=== PATIENT | female | born 1980 | race Caucasian/White ===

== ENCOUNTER → 2022-05-29 17:08 | Outpatient (CLI) | payer OTHER, SELFPAY ==
--- NOTE | 2022-05-29 17:20 | DI.US.S_ITS ---
PROCEDURE: US OB <= 14 WEEKS FETUS INDICATIONS: DATING AND VIABILITY OUTSIDE/PRIOR DATING DATA: Last menstrual period (LMP): 04/04/2022. LMP-based estimated date of delivery (AMBER): 01/09/2023. TECHNIQUE: Real-time scanning was performed of the fetus and maternal pelvic organs, with image documentation. Endovaginal scanning was also performed to better visualize the fetus and maternal ovaries. COMPARISON: None. FINDINGS: Embryo: A possible intrauterine gestational sac is seen, however there is no yolk sac or pole. The gestational sac measures 2.2 cm compatible with a 7 week 1 day . Maternal organs: Maternal ovaries are not seen.. IMPRESSION: 1.8 x 1.8 x 2.9 centimeter probable gestational sac. Gestational sac size suggests a gestational age of 7 weeks 1 day. Yolk sac and embryo are not visualized however. Findings are suggestive of early failure. We strive to produce accurate, complete, and clear reports of imaging services. To assist us in improving patient care, this report was composed using standard report templates and voice recognition software. Therefore, it may contain abnormal punctuation, insertions and/or omissions. Occasional wrong-word or sound-alike substitutions may occur. Though we review the report and make efforts to correct it, we do recommend that the report be read carefully in proper context to recognize any text inaccuracies. Dictated by: Orlando Núñez M.D. on 05/30/2022 at 13:52 Approved by: Orlando Núñez M.D. on 05/30/2022 at 13:56
== END ==
PROVIDERS: PCP Family Medicine; Referring Provider Obstetrics & Gynecology; Visit Provider Obstetrics & Gynecology
DX: O36.80X0 Pregnancy with inconclusive fetal viability, not applicable or unspecified (principal)
CPT/HCPCS: 76801; 76817

== ENCOUNTER → 2023-09-25 17:17 | Outpatient (CLI) | payer OTHER, SELFPAY ==
--- NOTE | 2023-09-25 17:23 | DI.RAD.S_ITS ---
PROCEDURE: XR LUMBAR SPINE MIN 4V INDICATIONS: low back pain TECHNIQUE: 5 views of the lumbar spine were acquired, including bilateral oblique views. COMPARISON: None. FINDINGS: Bones: 5 nonrib-bearing vertebrae are present. Minor leftward subluxation L4 on 5. Trace anterolisthesis L4 on 5. Moderate disc height loss L3-4, L4-5, and L5-S1. Alignment and disc spacing is otherwise normally maintained. There are small endplate spurs anteriorly at L3-4 and L5-S1. No vertebral body compression fractures. No suspicious bony lesions. Soft tissues: Overlying bowel gas pattern is normal. No suspicious soft tissue calcifications. Gastric band is present. Oblique images: No pars defects. IMPRESSION: 1. Mild L4-5 spondylosis and spondylolisthesis. 2. Disc degeneration in the lower lumbar spine. Dictated by: Eugenia Swain M.D. on 09/26/2023 at 11:41 Approved by: Eugenia Swain M.D. on 09/26/2023 at 11:43
== END ==
PROVIDERS: PCP Student in an Organized Health Care Education/Training Program; Referring Provider Anesthesiology; Visit Provider Anesthesiology
DX: M51.36 Other intervertebral disc degeneration, lumbar region (principal); M47.816 Spondylosis without myelopathy or radiculopathy, lumbar region; M43.16 Spondylolisthesis, lumbar region; M54.9 Dorsalgia, unspecified; G89.29 Other chronic pain
CPT/HCPCS: 72110

== ENCOUNTER → 2023-10-03 07:14 | Outpatient (CLI) | payer OTHER, SELFPAY ==
--- NOTE | 2023-10-03 07:17 | DI.RAD.S_ITS ---
PROCEDURE: XR KNEE RT 3V INDICATIONS: Knee pain TECHNIQUE: 3 views of the knee were acquired. COMPARISON: None. FINDINGS: Bones: No fractures or dislocations. No suspicious bony lesions. Severe tricompartmental osteoarthrosis of the right knee with moderate medial femorotibial compartment joint space narrowing. Prominent marginal osteophytes. Soft tissues: Small joint effusion. No suspicious soft tissue calcifications. IMPRESSION: Right knee without acute fracture or dislocation. Severe tricompartmental osteoarthrosis. Small joint effusion. Dictated by: Latrell Anderson M.D. on 10/03/2023 at 9:53 Approved by: Latrell Anderson M.D. on 10/03/2023 at 10:17
--- NOTE | 2023-10-03 07:17 | DI.RAD.S_ITS ---
PROCEDURE: XR KNEE LT 3V INDICATIONS: Knee pain TECHNIQUE: 3 views of the knee were acquired. COMPARISON: None. FINDINGS: Bones: No acute fractures or dislocations. No suspicious bony lesions. Moderate-severe tricompartmental degenerative changes of the left knee. Moderate medial femorotibial compartment joint space narrowing. Prominent marginal osteophytes. Soft tissues: Small joint effusion. No suspicious soft tissue calcifications. IMPRESSION: Left knee without acute fracture or dislocation. Moderate-severe tricompartmental degenerative changes of the left knee with moderate medial femorotibial compartment joint space narrowing. Small joint effusion. Dictated by: Latrell Anderson M.D. on 10/03/2023 at 9:50 Approved by: Latrell Anderson M.D. on 10/03/2023 at 9:53
[2023-10-03 07:56] LABS: Hemoglobin A1C% w Est Avg Glu 4.6 % (4.0-6.0)
[2023-10-03 07:57] LABS: Add Manual Diff / Slide Review NO; Basophils Absolute Auto 100 /uL (0-100); Basophils Percent Auto 1.1 % (0-2); Eosinophils Absolute Auto 300 /uL (0-450); Eosinophils Percent Auto 5.3 % (2-4); Hematocrit 37.9 % (36-46); Hemoglobin 13.4 g/dL (12.0-16.0); Lymphocytes Absolute Auto 1000 /uL (1100-4500); Lymphocytes Percent Auto 18.6 % (25-40); Mean Corpuscular HGB Conc 35.5 % (30-36); Mean Corpuscular Hemoglobin 30.9 PG (26-34); Mean Corpuscular Volume 87.1 fL (80-100); Monocytes Absolute Auto 400 /uL (0-900); Neutrophils Absolute Auto 3800 /uL (1500-7000); Platelet Count 228 X10^3/uL (150-400); Red Blood Cell Count 4.35 X10^6/uL (4.0-5.2); White Blood Cell Count 5.6 X10^3/uL (4.5-11.0)
[2023-10-03 08:05] LABS: Alanine Aminotransferase 16 IU/L (<35); Albumin 3.9 g/dL (3.5-5.0); Albumin Globulin Ratio 1.4 (1.0-2.8); Alkaline Phosphatase 63 U/L (38-126); Aspartate Aminotransferase 18 IU/L (14-36); BUN Creatinine Ratio 15.3 (6-22); Bilirubin Total 0.7 mg/dL (0.2-1.3); Blood Urea Nitrogen 13 mg/dL (7-17); Calcium 9.1 mg/dL (8.4-10.2); Carbon Dioxide 25 mmol/L (22-32); Chloride 106 mmol/L (98-107); Estimated Glomerular Filt Rate > 60 mL/min (>60); Globulin 2.7 g/dL (1.7-4.1); Glucose 121 mg/dL (70-100); HEMOLYSIS < 15 (0-50); Potassium 4.1 mmol/L (3.4-5.1); Sodium 138 mmol/L (137-145); Total Protein 6.6 g/dL (6.3-8.2)
[2023-10-03 08:32] LABS: TSH w/ Reflex to FT4 2.35 uIU/mL (0.47-4.68)
== END ==
PROVIDERS: PCP Student in an Organized Health Care Education/Training Program; Referring Provider Student in an Organized Health Care Education/Training Program; Visit Provider Student in an Organized Health Care Education/Training Program
DX: M25.569 Pain in unspecified knee (principal); G89.29 Other chronic pain; E66.01 Morbid (severe) obesity due to excess calories; Z68.44 Body mass index [BMI] 60.0-69.9, adult
CPT/HCPCS: 36415; 73562; 80053; 83036; 84443; 85025

== ENCOUNTER → 2023-10-10 14:35 | Outpatient (CLI) | payer OTHER, SELFPAY ==
[2023-10-10 20:16] LABS: Appearance Urine UA CLOUDY; Bilirubin Urine UA 1+ (NEGATIVE); Color Urine UA YELLOW; Glucose Urine UA NEGATIVE (Negative); Ketones Urine UA NEGATIVE (NEGATIVE); Leukocyte Esterase Urine UA NEGATIVE (NEGATIVE); Nitrite Urine UA NEGATIVE (Negative); Occult Blood Urine UA NEGATIVE (Negative); Protein Urine UA TRACE (Negative); Specific Gravity Urine UA >=1.030 (1.000-1.035)
[2023-10-10 20:18] LABS: pH Urine UA 5.5 (4.5-8.0)
[2023-10-10 20:27] LABS: Bacteria Urine Occasional (0-1); RBC Urine None Seen (0-5/HPF); Squamous Epithelial Cell Urine 1-5 /HPF (0-5/HPF); WBC Urine None Seen (0-5/HPF)
[2023-10-10 20:28] LABS: Amorphous Sediment Urine 4+; Culture Indicated Urine Cult Not Indicated
== END ==
PROVIDERS: PCP Student in an Organized Health Care Education/Training Program; Visit Provider Student in an Organized Health Care Education/Training Program
DX: Z87.898 Personal history of other specified conditions (principal)
CPT/HCPCS: 81001